=== PATIENT | female | born 1990 | race Two or more races ===

== ENCOUNTER 2016-11-08 20:25 | Inpatient (IN) | payer MEDICAID ==
[~2016-11-08] VITALS: Ht 149.9 cm; Wt 49.0 kg
[2016-11-08] MEDS ORDERED: D5W 500ml 550 ML IV ONE (20:29)
[2016-11-08] MEDS ORDERED: D5W 55 ML IV ONE (20:30)
--- NOTE | 2016-11-08 20:39 | Emergency Room Report ---
History of Present Illness General Chief Complaint: Generalized Weakness Source: Patient Present Illness HPI 26YOF BIBEMS for AMS Critically low blood glucose on scene Takes insulin, metformin, "something else." Was given D50 on scene glucose 40 in ED - patient lethargic Allergies: Coded Allergies: MORPHINE (Verified Allergy, Unknown, 11/08/16) PENICILLINS (Verified Allergy, Unknown, 11/08/16) Patient History Past Medical History: unable to obtain, DM Past Surgical History: unable to obtain Pertinent Family History: unable to obtain Social History: Denies: smoking, alcohol use, drug use Last Menstrual Period: unk Immunizations: UTD Reviewed Nursing Documentation: PMH: Agreed, PSxH: Agreed Nursing Documentation-PMH Past Medical History: No History, Except For Hx Diabetes: Yes Review of Systems All Other Systems: negative except mentioned in HPI Physical Exam Vital Signs Date Time Temp Pulse Resp B/P (MAP) Pulse Ox O2 Delivery O2 Flow Rate FiO2 11/08/16 20:17 140 42 118/68 98 Room Air Sp02 EP Interpretation: reviewed, normal General Appearance: normal inspection, well appearing, lethargic Head: normocephalic, atraumatic Eyes: bilateral eye PERRL, bilateral eye EOMI ENT: normal ENT inspection, hearing grossly normal, normal voice Neck: normal inspection, full range of motion, supple, no bony tend Respiratory: normal inspection, lungs clear, normal breath sounds, no respiratory distress, no retraction, no wheezing Cardiovascular #1: regular rate, rhythm, no edema Gastrointestinal: normal inspection, normal bowel sounds, non tender, soft, no guarding, no hernia Genitourinary: no CVA tenderness Musculoskeletal: normal inspection, back normal, normal range of motion, Christopher' s Sign negative Neurologic: normal inspection, alert, 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, 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, motor strength/tone normal, speech normal Psychiatric: normal inspection, judgement/insight normal, mood/affect normal Skin: normal inspection, normal color, no rash Medical Decision Making Diagnostic Impression: Primary Impression: Altered mental status Qualified Codes: R41.82 - Altered mental status, unspecified Additional Impressions: Hypoglycemia Sepsis Qualified Codes: A41.9 - Sepsis, unspecified organism Hypokalemia ER Course Hypoglycemia - Continued to drop despite EMS-given dextrose - Additional dextrose given here and D10 gtt started - CMP shows glucose 42 Sepsis - Fever, Leuks 30K+ - UA: pending at time of admission - CXR: No obvious PNA - Blood, Urine Cx sent - Empiric Abx given with ID tylenol - Unlikely meningitis given no meningismus, no focal neuro deficits Endorsed to Dr Avila for tele admit at 930pm EKG Diagnostic Results Rate: tachycardiac Rhythm: NSR ST Segments: no acute changes ASA given to the pt in ED: No Rhythm Strip Diag. Results EP Interpretation: yes Rate: 124 Rhythm: NSR, no PVC's, no ectopy Last Vital Signs Date Time Temp Pulse Resp B/P (MAP) Pulse Ox O2 Delivery O2 Flow Rate FiO2 11/08/16 20:17 140 42 118/68 98 Room Air Status: improved Disposition: ADMITTED INPATIENT Condition: Serious LAUREN SPANGLER M.D. Nov 08, 2016 20:39
[2016-11-08] MEDS ORDERED: Dextrose 10%/0.9% SOD CHL 1,000 ML IV SCH (20:45)
[2016-11-08 20:58] LABS: MEAN CORPUSCULAR HEMOGLOBIN 30.9 PG (27.0-31.0); MEAN CORPUSCULAR HGB CONC 33.9 G/DL (32.0-36.0); MEAN CORPUSCULAR VOLUME 91 FL (80-99); MEAN PLATELET VOLUME 5.6 FL (6.5-10.1); PLATELET COUNT 381 K/UL (150-450); RED BLOOD COUNT 3.04 M/UL (4.20-5.40); RED CELL DISTRIBUTION WIDTH 14.3 % (11.6-14.8)
[2016-11-08 21:01] VITALS: BP 115/69
[2016-11-08 21:02] LABS: WHITE BLOOD COUNT 33.7 K/UL (4.8-10.8)
[2016-11-08 21:11] LABS: ALANINE AMINOTRANSFERASE 16 U/L (3-33); ANION GAP 15 (5-15); ASPARTATE AMINO TRANSFERASE 22 U/L (5-40); CALCIUM 9.5 mg/dL (8.6-10.2); CARBON DIOXIDE 22 mEQ/L (20-30); CHLORIDE 93 mEQ/L (98-107); CREATININE 0.8 mg/dL (0.5-0.9); GLOMERULAR FILTRATION RATE > 60 mL/min (>60); HEMOLYSIS 7; POTASSIUM 3.2 mEQ/L (3.4-4.9); SODIUM 130 mEQ/L (135-145); TOTAL PROTEIN 7.6 g/dL (6.6-8.7)
[2016-11-08] MEDS ORDERED: Acetaminophen 650 MG SUPP RECTAL ONE (21:30)
[2016-11-08] MEDS ORDERED: Vancomycin 1 GM in NS 275 ML IVPB ONE (21:30)
[2016-11-08] MEDS ORDERED: Clindamycin 900mg 50 ML IVPB ONE (21:30)
[2016-11-08] MEDS ORDERED: Vancomycin 1gm inj IVPB ONE (21:52)
[2016-11-08] MEDS ORDERED: LORazepam Inj 2mg/ml 1ml IV PRN (22:15)
[2016-11-08] MEDS ORDERED: Miralax 17gm pkt ORAL PRN (22:15)
[2016-11-08] MEDS ORDERED: Mylanta II UD 30ml ORAL PRN (22:15)
[2016-11-08] MEDS ORDERED: Zolpidem 5mg tab ORAL PRN (22:15)
[2016-11-08 22:24] VITALS: BP 103/61
[2016-11-08 22:36] LABS: ANISOCYTOSIS 1+; BAND NEUTROPHILS % (MANUAL) 7 % (0-8); BASOPHILS % (MANUAL) 0 % (0-2); EOSINOPHILS % (MANUAL) 0 % (0-3); HYPOCHROMASIA 1+; LYMPHOCYTES % (MANUAL) 6 % (20-45); NEUTROPHILS % (MANUAL) 83 % (45-75); PLATELET ESTIMATE ADEQUATE; PLATELET MORPHOLOGY NORMAL; TOTAL CELLS COUNTED 100
[2016-11-08 22:50] VITALS: BP 101/59
[2016-11-09] VITALS (11 sets, daily range): BP systolic 80–122; BP diastolic 50–85
[2016-11-09] MEDS ORDERED: GLIPIZIDE ER5 MG PO (01:36)
[2016-11-09] MEDS ORDERED: ADVAIR 100-501 EACH INH (01:36)
[2016-11-09] MEDS ORDERED: SINGULAIR10 MG ORAL (01:36)
[2016-11-09] MEDS ORDERED: PROGRAF0.5 MG PO (01:36)
[2016-11-09] MEDS ORDERED: LANTUS SOL100 UNIT/1 SUBQ (01:36)
[2016-11-09] MEDS ORDERED: NOVOLOG100 UNITS1 (01:36)
[2016-11-09] MEDS ORDERED: SIMVASTATIN10 MG ORAL (01:36)
[2016-11-09] MEDS ORDERED: PREDNISONE2.5 MG ORAL (01:36)
[2016-11-09] MEDS ORDERED: LISINOPRIL10 MG ORAL (01:36)
[2016-11-09] MEDS ORDERED: PROAIR HFA8.5 GM INH (01:36)
[2016-11-09] MEDS ORDERED: NEXIUM40 MG ORAL (01:36)
[2016-11-09] MEDS ORDERED: BREO ELLIPTA 21 EACH IH (01:36)
[2016-11-09] MEDS ORDERED: CELLCEPT200 MG/1 M PO (01:36)
[2016-11-09] MEDS ORDERED: DITROPAN XL5 MG ORAL (01:36)
[2016-11-09] MEDS ORDERED: METFORMIN HCL500 M1 ORAL (01:36)
[2016-11-09] MEDS ORDERED: FLOVENT2 PUFF1 INH (01:36)
[2016-11-09] MEDS ORDERED: FLUTICASONE PRO16 G1 NASAL (01:36)
[2016-11-09] MEDS ORDERED: GLIMEPIRIDE1 MG ORAL (01:36)
[2016-11-09] MEDS: Aztreonam Inj 1 GM in NS 50 ML IVPB SCH ×3 (01:57→16:59)
[2016-11-09] MEDS: NovoLOG Insulin Flexpen SUBQ SCH ×4 (06:43→21:31)
[2016-11-09 06:44] LABS: MEAN CORPUSCULAR HEMOGLOBIN 30.1 PG (27.0-31.0); MEAN CORPUSCULAR HGB CONC 33.2 G/DL (32.0-36.0); MEAN CORPUSCULAR VOLUME 91 FL (80-99); MEAN PLATELET VOLUME 5.7 FL (6.5-10.1); PLATELET COUNT 412 K/UL (150-450); RED BLOOD COUNT 3.36 M/UL (4.20-5.40); RED CELL DISTRIBUTION WIDTH 14.7 % (11.6-14.8)
[2016-11-09 06:52] LABS: WHITE BLOOD COUNT 23.3 K/UL (4.8-10.8)
[2016-11-09 07:00] LABS: ALANINE AMINOTRANSFERASE 18 U/L (3-33); ANION GAP 12 (5-15); ASPARTATE AMINO TRANSFERASE 18 U/L (5-40); CALCIUM 9.1 mg/dL (8.6-10.2); CARBON DIOXIDE 24 mEQ/L (20-30); CHLORIDE 94 mEQ/L (98-107); CHOLESTEROL 85 mg/dL (< 200); CHOLESTEROL/HDL RATIO 2.1 (3.3-4.4); CREATININE 0.7 mg/dL (0.5-0.9); GLOMERULAR FILTRATION RATE > 60 mL/min (>60); HEMOLYSIS 1; LDL CHOLESTEROL (CALC.) 34 mg/dL (60-99); POTASSIUM 4.1 mEQ/L (3.4-4.9); SODIUM 130 mEQ/L (135-145)
[2016-11-09 08:17] LABS: BAND NEUTROPHILS % (MANUAL) 0 % (0-8); BASOPHILS % (MANUAL) 0 % (0-2); EOSINOPHILS % (MANUAL) 0 % (0-3); LYMPHOCYTES % (MANUAL) 9 % (20-45); NEUTROPHILS % (MANUAL) 86 % (45-75); PLATELET ESTIMATE INCREASED; PLATELET MORPHOLOGY NORMAL; TOTAL CELLS COUNTED 100
[2016-11-09 08:19] LABS: ANISOCYTOSIS 1+
[2016-11-09] MEDS: Heparin 5000 units/ml inj SUBQ SCH ×2 (08:36→21:33)
[2016-11-09] MEDS: Vancomycin 750mg/NS 250ml IVPB SCH ×2 (10:44→23:25)
[2016-11-09] MEDS ORDERED: Tubing IV Secondary IV ONE (11:12)
[2016-11-09] MEDS ORDERED: NS 275ml ONE (11:12)
--- NOTE | 2016-11-09 11:20 | Diagnostic Imaging Report ---
Indication: Dyspnea Comparison: None A single view chest radiograph was obtained. Findings: Interstitial edema suspected. Heart is enlarged. Bones are unremarkable. These correlate clinically. Impression: Suspected mild interstitial edema
--- NOTE | 2016-11-09 13:12 | History and Physical ---
History of Present Illness General Date patient seen: Nov 09, 2016 Reason for Hospitalization: Generalized Weakness Present Illness HPI 26 year old homeless female with hx of DM, brought in by paramedics with CC of ALOC and hypoglycemia,. She was found to be febrile with leukocytosis as well. She doesn't have any dysuria, some left flank pain, no cough, no flu symptoms. Allergies: Coded Allergies: MORPHINE (Verified Allergy, Unknown, 11/08/16) PENICILLINS (Verified Allergy, Unknown, 11/08/16) Medication History Scheduled Albuterol Sulfate* (Proair Hfa*), 1 PUFF INH Q6H, (Reported) Esomeprazole Magnesium (Nexium), 40 MG ORAL DAILY, (Reported) Fluticasone Propionate (Flovent Hfa), 2 PUFFS INH BID, (Reported) Fluticasone Propionate* (Fluticasone Propionate*), 1 SPRAY NASAL DAILY, ( Reported) Fluticasone/Salmeterol (Advair 100-50 Diskus), 1 PUFF INH EVERY 12 HOURS, ( Reported) Glimepiride* (Glimepiride*), 40 MG ORAL BEFORE BREAKFAST, (Reported) Insulin Glargine (Lantus), 0 SUBQ BEDTIME, (Reported) Lisinopril* (Lisinopril*), 10 MG ORAL DAILY, (Reported) Metformin Hcl* (Metformin Hcl*), 500 MG ORAL TWICE A DAY, (Reported) Montelukast Sodium* (Singulair*), 10 MG ORAL DAILY, (Reported) Oxybutynin Chloride (Ditropan Xl), 5 MG ORAL DAILY, (Reported) Prednisone* (Prednisone*), 5 MG ORAL DAILY, (Reported) Simvastatin (Zocor), 10 MG ORAL BEDTIME, (Reported) Miscellaneous Medications Fluticasone/Vilanterol (Breo Ellipta 200-25 Mcg INH), 1 EACH IH, (Reported) Glipizide (Glipizide Er), 5 MG PO, (Reported) Insulin Aspart (Novolog Flexpen), (Reported) Mycophenolate Mofetil (Cellcept), 500 MG PO, (Reported) Tacrolimus (Prograf), 1 MG PO, (Reported) Patient History Healthcare decision maker Resuscitation status Full Code Advanced Directive on File No Past Medical/Surgical History Past Medical/Surgical History: (1) Diabetes mellitus Review of Systems All Other Systems: negative except mentioned in HPI Physical Exam General Appearance: WD/WN Lines, tubes and drains: peripheral HEENT: normocephalic, atraumatic Neck: non-tender, normal alignment Respiratory/Chest: chest wall non-tender, lungs clear Breasts: no masses Cardiovascular/Chest: normal peripheral pulses Abdomen: normal bowel sounds, non tender Genitourinary/Rectal: normal genital exam Extremities: normal range of motion, non-tender Skin Exam: warm/dry Last 24 Hour Vital Signs Date Time Temp Pulse Resp B/P (MAP) Pulse Ox O2 Delivery O2 Flow Rate FiO2 11/09/16 11:33 97.9 88 20 91/53 96 Room Air 11/09/16 09:26 98.4 11/09/16 08:11 102.2 132 20 102/61 97 11/09/16 08:00 126 11/09/16 04:00 92 11/09/16 04:00 97.0 82 20 121/62 98 Room Air 11/09/16 04:00 98.2 100 21 104/55 99 Room Air 11/09/16 03:00 97.0 78 20 101/58 98 Room Air 11/09/16 02:30 96.0 75 20 88/53 99 Room Air 11/09/16 02:00 96.0 82 20 90/50 99 Room Air 11/09/16 01:45 96.0 82 20 88/56 99 Room Air 11/09/16 01:15 96.0 72 20 84/50 99 Room Air 11/09/16 01:00 96.0 78 20 80/54 98 Room Air 11/09/16 00:30 97.9 83 27 98/68 100 Room Air 11/08/16 22:50 83 27 101/59 100 Room Air 11/08/16 22:50 97.9 11/08/16 22:24 97.9 108 32 103/61 100 Room Air 11/08/16 21:01 102.9 123 41 115/69 99 Room Air 11/08/16 20:17 140 42 118/68 98 Room Air Intake and Output 11/09/16 11/10/16 19:00 07:00 Intake Total 240 ml Balance 240 ml Intake Oral 240 ml # Voids 3 Laboratory Tests Test 11/08/16 20:35 11/09/16 06:20 White Blood Count 33.7 K/UL (4.8-10.8) *H 23.3 K/UL (4.8-10.8) *H Red Blood Count 3.04 M/UL (4.20-5.40) L 3.36 M/UL (4.20-5.40) L Hemoglobin 9.4 G/DL (12.0-16.0) L 10.1 G/DL (12.0-16.0) L Hematocrit 27.8 % (37.0-47.0) L 30.5 % (37.0-47.0) L Mean Corpuscular Volume 91 FL (80-99) 91 FL (80-99) Mean Corpuscular Hemoglobin 30.9 PG (27.0-31.0) 30.1 PG (27.0-31.0) Mean Corpuscular Hemoglobin Concent 33.9 G/DL (32.0-36.0) 33.2 G/DL (32.0-36.0) Red Cell Distribution Width 14.3 % (11.6-14.8) 14.7 % (11.6-14.8) Platelet Count 381 K/UL (150-450) 412 K/UL (150-450) Mean Platelet Volume 5.6 FL (6.5-10.1) L 5.7 FL (6.5-10.1) L Neutrophils (%) (Auto) % (45.0-75.0) % (45.0-75.0) Lymphocytes (%) (Auto) % (20.0-45.0) % (20.0-45.0) Monocytes (%) (Auto) % (1.0-10.0) % (1.0-10.0) Eosinophils (%) (Auto) % (0.0-3.0) % (0.0-3.0) Basophils (%) (Auto) % (0.0-2.0) % (0.0-2.0) Differential Total Cells Counted 100 100 Neutrophils % (Manual) 83 % (45-75) H 86 % (45-75) H Lymphocytes % (Manual) 6 % (20-45) L 9 % (20-45) L Monocytes % (Manual) 4 % (1-10) 5 % (1-10) Eosinophils % (Manual) 0 % (0-3) 0 % (0-3) Basophils % (Manual) 0 % (0-2) 0 % (0-2) Band Neutrophils 7 % (0-8) 0 % (0-8) Other Cell Type Platelet Estimate Adequate Increased H Platelet Morphology Normal Normal Hypochromasia 1+ Anisocytosis 1+ 1+ Sodium Level 130 mEQ/L (135-145) L 130 mEQ/L (135-145) L Potassium Level 3.2 mEQ/L (3.4-4.9) L 4.1 mEQ/L (3.4-4.9) Chloride Level 93 mEQ/L (98-107) L 94 mEQ/L (98-107) L Carbon Dioxide Level 22 mEQ/L (20-30) 24 mEQ/L (20-30) Anion Gap 15 (5-15) 12 (5-15) Blood Urea Nitrogen 12 mg/dL (7-23) 9 mg/dL (7-23) Creatinine 0.8 mg/dL (0.5-0.9) 0.7 mg/dL (0.5-0.9) Estimat Glomerular Filtration Rate > 60 mL/min (>60) > 60 mL/min (>60) Glucose Level 42 mg/dL (74-106) L 296 mg/dL (74-106) #H Calcium Level 9.5 mg/dL (8.6-10.2) 9.1 mg/dL (8.6-10.2) Total Bilirubin 0.3 mg/dL (0.0-1.2) 0.4 mg/dL (0.0-1.2) Aspartate Amino Transf (AST/SGOT) 22 U/L (5-40) 18 U/L (5-40) Alanine Aminotransferase (ALT/SGPT) 16 U/L (3-33) 18 U/L (3-33) Alkaline Phosphatase 93 U/L (35-104) 98 U/L (35-104) Total Protein 7.6 g/dL (6.6-8.7) 7.0 g/dL (6.6-8.7) Albumin 3.9 g/dL (3.5-5.2) 3.6 g/dL (3.5-5.2) Globulin 3.7 g/dL 3.4 g/dL Albumin/Globulin Ratio 1.0 (1.0-2.7) 1.0 (1.0-2.7) Triglycerides Level 49 mg/dL (< 150) Cholesterol Level 85 mg/dL (< 200) LDL Cholesterol 34 mg/dL (60-99) L HDL Cholesterol 41 mg/dL (> 60) Cholesterol/HDL Ratio 2.1 (3.3-4.4) L Height (Feet): 4 Height (Inches): 11.00 Weight (Pounds): 108 Medications Current Medications Medications (Trade) Dose Ordered Sig/Mike Route PRN Reason Start Time Stop Time Status Last Admin Dose Admin Acetaminophen (Tylenol) 650 mg Q4H PRN ORAL Mild Pain/Temp > 100.5 11/09/16 06:45 12/09/16 06:44 11/09/16 08:27 Al Hydroxide/Mg Hydroxide (Mylanta II) 30 ml Q6H PRN ORAL dyspepsia 11/08/16 22:15 12/08/16 22:14 Aztreonam 1 gm/ Sodium Chloride 50 ml @ 100 mls/hr Q8H IVPB 11/09/16 00:00 11/16/16 00:00 11/09/16 08:26 Dextrose (Dextrose 50%) STAT PRN IV Hypoglycemia 11/08/16 22:15 12/08/16 22:14 Dextrose/Sodium Chloride 1,000 ml @ 50 mls/hr Q20H IV 11/08/16 20:45 12/08/16 20:44 11/08/16 21:07 Heparin Sodium (Porcine) (Heparin 5000 units/ml) 5,000 units EVERY 12 HOURS SUBQ 11/09/16 09:00 12/09/16 08:59 11/09/16 08:36 Insulin Aspart (NovoLOG) BEFORE MEALS AND HS SUBQ 11/09/16 06:30 12/09/16 06:29 11/09/16 12:20 Lorazepam (Ativan 2mg/ml 1ml) 0.5 mg Q4H PRN IV For Anxiety 11/08/16 22:15 11/15/16 22:14 Ondansetron HCl (Zofran) 4 mg Q6H PRN IVP Nausea & Vomiting 11/08/16 22:15 12/08/16 22:14 Polyethylene Glycol (Miralax) 17 gm HSPRN PRN ORAL Constipation 11/08/16 22:15 12/08/16 22:14 Vancomycin HCl (Vanco rx to dose) 1 ea DAILY PRN MISC Per rx protocol 11/08/16 22:15 12/08/16 22:14 Vancomycin/Sodium Chloride 250 ml @ 166.667 mls/hr Q12H IVPB 11/09/16 11:00 11/14/16 10:59 11/09/16 10:44 Zolpidem Tartrate (Ambien) 5 mg HSPRN PRN ORAL Insomnia 11/08/16 22:15 11/15/16 22:14 Assessment/Plan Problem List: (1) Sepsis ICD Codes: A41.9 - Sepsis, unspecified organism SNOMED: 52646464 Qualifiers: Qualified Codes: A41.9 - Sepsis, unspecified organism (2) Hypoglycemia ICD Codes: E16.2 - Hypoglycemia, unspecified SNOMED: 453479415 (3) Altered mental status ICD Codes: R41.82 - Altered mental status, unspecified SNOMED: 064236880 Qualifiers: Qualified Codes: R41.82 - Altered mental status, unspecified (4) Diabetes mellitus ICD Codes: E11.9 - Type 2 diabetes mellitus without complications SNOMED: 77042034 Assessment/Plan iv fluids iv cultures panculture echo dvt prophylaxis MICHAEL US Nov 09, 2016 13:12
--- NOTE | 2016-11-09 13:30 | Cardiology Report ---
APPROVED REPORT EXAM: Two-dimensional and M-mode echocardiogram with Doppler and color Doppler. INDICATION LV function M-Mode DIMENSIONS IVSd1.1 (0.7-1.1cm)Left Atrium (MM)2.8 (1.6-4.0cm) LVDd3.2 (3.5-5.6cm)Aortic Root2.9 (2.0-3.7cm) PWd1.2 (0.7-1.1cm)Aortic Cusp Exc.1.7 (1.5-2.0cm) LVDs1.4 (2.5-4.0cm) PWs1.7 cm Normal left ventricular chamber size, systolic function and wall motion. Left ventricular ejection fraction estimated to be 60 %. Borderline mild left ventricular hypertrophy by 2-D. Anterior Echo-free space, may be due to pericardial fat or effusion. All other cardiac chamber sizes are within normal limits. Normal appearing aortic, mitral, pulmonic and tricuspid valves. Mild mitral annulus and aortic root calcification. IVC at normal size with physiologic collapse. A color flow and spectral Doppler study was performed and revealed: Mild aortic regurgitation. Mild mitral regurgitation. Mitral inflow indicates normal left ventricular diastolic function. Trace tricuspid regurgitation. Tricuspid systolic velocities suggests peak right ventricular systolic pressure of 32 mmHg. Pulmonic regurgitation present.
--- NOTE | 2016-11-09 15:34 | Cardiology Report ---
APPROVED REPORT EKG Measurement Heart [id number] Sinus tachycardia Otherwise normal ECG
[2016-11-09] MEDS ORDERED: SODIUM ACETATE IV ONE (15:45)
[2016-11-09] MEDS ORDERED: NS IV ONE (15:45)
[2016-11-09] MEDS ORDERED: NS IV SCH (15:45)
[2016-11-09] MEDS ORDERED: SODIUM ACETATE IV SCH (15:45)
[2016-11-09] MEDS ORDERED: Lidocaine 1% Plain 30 ml INJ ONE (16:00)
[2016-11-09] MEDS ORDERED: Heparin 2000 units/Ns 1000ml INJ ONE (16:00)
--- NOTE | 2016-11-09 17:04 | Diagnostic Imaging Report ---
Indication:Lower abdominal and pelvic pain Technique: Grayscale and duplex Doppler imaging of the pelvis performed utilizing a transabdominal scan and endovaginal scan. Comparison: None Findings: other instrumentation. The uterus is mildly inhomogeneous but otherwise unremarkable. There are multiple cysts within both ovaries, solid portions of which appear to show color Doppler evidence of blood flow. The right ovary is 3.8 x 3.3 x 1.8 CM. Left ovary is 3.9 x 3.8 x 2.5 CM. Uterus measures 8 x 4.6 x 4 CM. Endometrium is 11 mm in thickness at its maximum. No significant free fluid demonstrated. Impression: Negative evaluation.
--- NOTE | 2016-11-09 19:26 | Consultation ---
Consult Note Consult Note dictated DEANA LUTHER M.D. Nov 09, 2016 19:26
[2016-11-09] MEDS: Dyna-Hex 2% Top Sol 8oz TOPIC SCH (21:00)
[2016-11-09 23:38] LABS: APPEARANCE,URINE CLEAR; KETONES,URINE NEGATIVE (NEGATIVE); LEUKOCYTE ESTERASE ,URINE 2+ (NEGATIVE); NITRITE,URINE NEGATIVE (NEGATIVE); PH,URINE 7 (4.5-8.0); PROTEIN,URINE 1+ (NEGATIVE); UROBILINOGEN,URINE NORMAL MG/DL (0.0-1.0)
[2016-11-09 23:53] LABS: RBC,URINE 0 /HPF (0 - 2)
[2016-11-09 23:54] LABS: BACTERIA,URINE FEW /HPF; SQUAMOUS EPITHELIAL CELL,UR MODERATE /LPF (NONE/OCC)
[2016-11-10] VITALS: BP 120/71
[2016-11-10] MEDS: Aztreonam Inj 1 GM in NS 50 ML IVPB SCH ×3 (01:15→16:04)
[2016-11-10 04:00] VITALS: BP 109/73
[2016-11-10] MEDS: NovoLOG Insulin Flexpen SUBQ SCH ×4 (06:29→20:44)
[2016-11-10 06:57] LABS: BASOPHILS % (AUTO) 0.5 % (0.0-2.0); EOSINOPHILS % (AUTO) 0.5 % (0.0-3.0); LYMPHOCYTES % (AUTO) 21.5 % (20.0-45.0); MEAN CORPUSCULAR HEMOGLOBIN 29.9 PG (27.0-31.0); MEAN CORPUSCULAR HGB CONC 33.1 G/DL (32.0-36.0); MEAN CORPUSCULAR VOLUME 90 FL (80-99); MEAN PLATELET VOLUME 5.6 FL (6.5-10.1); MONOCYTES % (AUTO) 9.3 % (1.0-10.0); NEUTROPHILS % (AUTO) 68.2 % (45.0-75.0); PLATELET COUNT 413 K/UL (150-450); RED BLOOD COUNT 3.16 M/UL (4.20-5.40); RED CELL DISTRIBUTION WIDTH 14.7 % (11.6-14.8); WHITE BLOOD COUNT 16.3 K/UL (4.8-10.8)
[2016-11-10 07:40] LABS: ALANINE AMINOTRANSFERASE 10 U/L (3-33); ALBUMIN/GLOBULIN RATIO 0.9 (1.0-2.7); ANION GAP 12 (5-15); ASPARTATE AMINO TRANSFERASE 11 U/L (5-40); CALCIUM 9.6 mg/dL (8.6-10.2); CARBON DIOXIDE 25 mEQ/L (20-30); CHLORIDE 98 mEQ/L (98-107); CREATININE 0.6 mg/dL (0.5-0.9); CRP QUANT 23.5 mg/dL (< 0.5); GLOMERULAR FILTRATION RATE > 60 mL/min (>60); HEMOLYSIS 0; MAGNESIUM 1.4 mg/dL (1.7-2.5); PHOSPHORUS 3.3 mg/dL (2.5-4.8); POTASSIUM 3.7 mEQ/L (3.4-4.9); SODIUM 135 mEQ/L (135-145); TOTAL PROTEIN 6.7 g/dL (6.6-8.7)
[2016-11-10 08:00] VITALS: BP 101/66
[2016-11-10 08:39] LABS: ERYTHROCYTE SEDIMENTATION RATE 119 MM/HR (0-20)
[2016-11-10] MEDS: Dyna-Hex 2% Top Sol 8oz TOPIC SCH (09:00)
--- NOTE | 2016-11-10 09:46 | Consultation ---
DATE OF CONSULTATION: INFECTIOUS DISEASES CONSULTATION CONSULTING PHYSICIAN: Nikhil Retana M.D. REQUESTING PHYSICIAN: Naima Avila M.D. REASON FOR CONSULTATION: Evaluation of the patient for UTI, fever, sepsis, leukocytosis, and antibiotic management. HISTORY OF PRESENT ILLNESS: The patient is a 26-year-old female with multiple medical problems as listed below, who was admitted to this medical center altered level of consciousness, however, the patient denied having significant change of mental status. She complains of having been feeling weak, having pain over the left-sided kidney transplant and flank tenderness that she is contributing due to urinary tract infection. The patient was found to have leukocytosis. Also, the patient was found to have hyperglycemia and the patient has been started on IV antibiotics. Infectious Diseases consultation has been requested for further evaluation of the patient's antibiotic management. PAST MEDICAL HISTORY: 1. Diabetes. 2. Asthma. 3. History of renal transplant x2 (2008 and 2013). 4. Anemia. ALLERGIES: Penicillin and morphine. SOCIAL HISTORY: The patient is homeless. FAMILY HISTORY: Noncontributory. REVIEW OF SYSTEMS: A 10-point review was done and except what is mentioned above has been negative. PHYSICAL EXAMINATION: VITAL SIGNS: Temperature 102 degrees, blood pressure 122/85, pulse 86, and respiratory rate 18. HEENT: Mild pale conjunctivae. NECK: No lymphadenopathy. CHEST: Coarse breathing sounds. HEART: S1 and S2. ABDOMEN: Soft. The patient has mild tenderness over the left lower quadrant at the site of kidney transplant. Mild left-sided flank tenderness. NEUROLOGIC: Awake and alert. SKIN: No rash. LABORATORY AND DIAGNOSTIC DATA: White blood cells 23, hemoglobin 10, and platelets 416,000. BUN 9 and creatinine 0.7. ALT, AST, and alkaline phosphatase are unremarkable. Abdominal ultrasound negative. Chest x-ray, unremarkable. ASSESSMENT: 1. Fever. 2. Leukocytosis. 3. Possible pyelonephritis (left renal transplant). 4. Rule out bacteremia. PLAN: 1. We will continue the patient on Azactam. 2. Monitor CBC. 3. Monitor BMP. 4. Send urine culture and UA, has not been sent. This is post antibiotic treatment. 5. Renal ultrasound. 6. Based on the patient's clinical course and labs, we will do further recommendations. . Thank you, Dr. Avila, for allowing me to participate in the care of this patient. I will follow the patient with you during this hospitalization. Nikhil Retana M.D. DR: Tabitha JOB#: [id number] CC:
[2016-11-10] MEDS: Heparin 5000 units/ml inj SUBQ SCH ×2 (10:43→20:43)
[2016-11-10 12:00] VITALS: BP 102/63
--- NOTE | 2016-11-10 12:17 | Pulmonology Progress Note ---
Assessment/Plan Problems: (1) Sepsis (2) Hypoglycemia (3) Altered mental status (4) Diabetes mellitus (5) Renal transplant, status post (6) Tachycardia Assessment/Plan wbc decreasing echo checked check cultures keep in teli as ling as tachycardic Subjective ROS Limited/Unobtainable: No Constitutional: Reports: no symptoms HEENT: Repors: no symptoms Respiratory: Reports: no symptoms Cardiovascular: Reports: no symptoms Allergies: Coded Allergies: MORPHINE (Verified Allergy, Unknown, 11/08/16) PENICILLINS (Verified Allergy, Unknown, 11/08/16) Objective Last 24 Hour Vital Signs Date Time Temp Pulse Resp B/P (MAP) Pulse Ox O2 Delivery O2 Flow Rate FiO2 11/10/16 08:00 98.1 89 19 101/66 97 Room Air 11/10/16 04:00 92 11/10/16 04:00 98.2 94 20 109/73 97 Room Air 11/10/16 03:00 98.2 11/10/16 00:00 99.7 109 20 120/71 96 Room Air 11/10/16 00:00 115 11/09/16 20:00 94 11/09/16 20:00 98.8 94 20 99/68 97 Room Air 11/09/16 16:00 140 11/09/16 15:36 101.5 111 22 122/85 98 Room Air General Appearance: WD/WN, no acute distress HEENT: atraumatic Respiratory/Chest: chest wall non-tender, lungs clear Breasts: no masses Cardiovascular: normal peripheral pulses, normal rate Abdomen: soft, non tender, no organomegaly Genitourinary: normal external genitalia Extremities: no clubbing Microbiology Date/Time Source Procedure Growth Status 11/08/16 22:00 Blood Blood Culture - Preliminary NO GROWTH AFTER 24 HOURS Resulted 11/08/16 21:45 Blood Blood Culture - Preliminary NO GROWTH AFTER 24 HOURS Resulted Laboratory Tests 11/09/16 22:45: Urine Color Pale yellow, Urine Appearance Clear, Urine pH 7, Urine Specific [place] 1.005, Urine Protein 1+H, Urine Glucose (UA) 4+H, Urine Ketones Negative , Urine Occult Blood Negative, Urine Nitrite Negative, Urine Bilirubin Negative , Urine Urobilinogen Normal, Urine Leukocyte Esterase 2+H, Urine RBC 0, Urine WBC 5-10H, Urine Squamous Epithelial Cells ModerateH, Urine Bacteria Few 11/10/16 06:00: White Blood Count 16.3H, Red Blood Count 3.16L, Hemoglobin 9.4L, Hematocrit 28.5L, Mean Corpuscular Volume 90, Mean Corpuscular Hemoglobin 29.9, Mean Corpuscular Hemoglobin Concent 33.1, Red Cell Distribution Width 14.7, Platelet Count 413, Mean Platelet Volume 5.6L, Neutrophils (%) (Auto) 68.2, Lymphocytes ( %) (Auto) 21.5, Monocytes (%) (Auto) 9.3, Eosinophils (%) (Auto) 0.5, Basophils (%) (Auto) 0.5, Erythrocyte Sedimentation Rate 119H, Sodium Level 135, Potassium Level 3.7, Chloride Level 98, Carbon Dioxide Level 25, Anion Gap 12, Blood Urea Nitrogen 8, Creatinine 0.6, Estimat Glomerular Filtration Rate > 60, Glucose Level 172#H, Calcium Level 9.6, Phosphorus Level 3.3, Magnesium Level 1.4L, Total Bilirubin 0.3, Aspartate Amino Transf (AST/SGOT) 11, Alanine Aminotransferase (ALT/SGPT) 10, Alkaline Phosphatase 88, C-Reactive Protein, Quantitative 23.5H, Total Protein 6.7, Albumin 3.3L, Globulin 3.4, Albumin/ Globulin Ratio 0.9L Current Medications Medications (Trade) Dose Ordered Sig/Mike Route PRN Reason Start Time Stop Time Status Last Admin Dose Admin Acetaminophen (Tylenol) 650 mg Q4H PRN ORAL Mild Pain/Temp > 100.5 11/09/16 06:45 12/09/16 06:44 11/10/16 02:01 Al Hydroxide/Mg Hydroxide (Mylanta II) 30 ml Q6H PRN ORAL dyspepsia 11/08/16 22:15 12/08/16 22:14 Aztreonam 1 gm/ Sodium Chloride 50 ml @ 100 mls/hr Q8H IVPB 11/09/16 00:00 11/16/16 00:00 11/10/16 10:21 Chlorhexidine Gluconate (Kyleigh-Hex 2%) 1 applic DAILY TOPIC 11/09/16 21:00 12/09/16 20:59 Dextrose (Dextrose 50%) STAT PRN IV Hypoglycemia 11/08/16 22:15 12/08/16 22:14 Heparin Sodium (Porcine) (Heparin 5000 units/ml) 5,000 units EVERY 12 HOURS SUBQ 11/09/16 09:00 12/09/16 08:59 11/10/16 10:43 Insulin Aspart (NovoLOG) BEFORE MEALS AND HS SUBQ 11/09/16 06:30 12/09/16 06:29 11/09/16 21:31 Lorazepam (Ativan 2mg/ml 1ml) 0.5 mg Q4H PRN IV For Anxiety 11/08/16 22:15 11/15/16 22:14 Ondansetron HCl (Zofran) 4 mg Q6H PRN IVP Nausea & Vomiting 11/08/16 22:15 12/08/16 22:14 Polyethylene Glycol (Miralax) 17 gm HSPRN PRN ORAL Constipation 11/08/16 22:15 12/08/16 22:14 Zolpidem Tartrate (Ambien) 5 mg HSPRN PRN ORAL Insomnia 11/08/16 22:15 11/15/16 22:14 MICHAEL US Nov 10, 2016 12:17
--- NOTE | 2016-11-10 12:17 | Diagnostic Imaging Report ---
Indication:Abdominal pain Technique: Grayscale and duplex Doppler imaging of the abdomen performed. Comparison: None Findings: The liver, demonstrated part of the pancreas, gallbladder, aorta and IVC, spleen appear unremarkable. CBD is 4 mm. There is no biliary ductal dilatation identified. The sun'aq kidneys are not seen well. Doppler evaluation of the main portal vein shows patency. There is no ascites. Patient has history of end-stage renal disease and is status post 2 transplant kidneys. There is an old transplanted kidney in the right iliac fossa, which appear small and echogenic. There is a left transplanted kidney as well as iliac fossa which appears normal in contour size and echogenicity with no hydronephrosis. Doppler sampling of the left renal transplant kidney shows resistive indices that are within normal limits (approximately 0.6- 0.7) and waveforms showing good diastolic flow throughout the cardiac cycle. Urinary bladder is unremarkable. Impression: No acute findings demonstrated. Atrophy of the sun'aq kidneys. Transplanted kidney in the left iliac fossa. Normal Doppler waveforms and resistive indices. Old right transplanted kidney.
[2016-11-10] MEDS ORDERED: Mycophenolate 250mg cap ORAL SCH (12:30)
[2016-11-10 16:00] VITALS: BP 106/73
[2016-11-10] MEDS ORDERED: Tubing IV Secondary IV ONE (16:49)
[2016-11-10] MEDS: Mycophenolate 250mg cap ORAL SCH (18:07)
--- NOTE | 2016-11-10 18:07 | Infectious Diseases Prog Note ---
Subjective Allergies: Coded Allergies: MORPHINE (Verified Allergy, Unknown, 11/08/16) PENICILLINS (Verified Allergy, Unknown, 11/08/16) Objective Vital Signs Last 24 Hour Vital Signs Date Time Temp Pulse Resp B/P (MAP) Pulse Ox O2 Delivery O2 Flow Rate FiO2 11/10/16 16:00 100.0 102 18 106/73 99 Room Air 11/10/16 16:00 123 11/10/16 15:10 100.0 11/10/16 12:00 101.8 121 20 102/63 98 Room Air 11/10/16 12:00 123 11/10/16 08:00 98.1 89 19 101/66 97 Room Air 11/10/16 08:00 78 11/10/16 04:00 92 11/10/16 04:00 98.2 94 20 109/73 97 Room Air 11/10/16 00:00 99.7 109 20 120/71 96 Room Air 11/10/16 00:00 115 11/09/16 20:00 94 11/09/16 20:00 98.8 94 20 99/68 97 Room Air Height (Feet): 4 Height (Inches): 11.00 Weight (Pounds): 108 Microbiology Date/Time Source Procedure Growth Status 11/08/16 22:00 Blood Blood Culture - Preliminary NO GROWTH AFTER 24 HOURS Resulted 11/08/16 21:45 Blood Blood Culture - Preliminary NO GROWTH AFTER 24 HOURS Resulted Laboratory Tests Test 11/09/16 22:45 11/10/16 06:00 Urine Color Pale yellow Urine Appearance Clear Urine pH 7 (4.5-8.0) Urine Specific [place] 1.005 (1.005-1.035) Urine Protein 1+ (NEGATIVE) H Urine Glucose (UA) 4+ (NEGATIVE) H Urine Ketones Negative (NEGATIVE) Urine Occult Blood Negative (NEGATIVE) Urine Nitrite Negative (NEGATIVE) Urine Bilirubin Negative (NEGATIVE) Urine Urobilinogen Normal MG/DL (0.0-1.0) Urine Leukocyte Esterase 2+ (NEGATIVE) H Urine RBC 0 /HPF (0 - 2) Urine WBC 5-10 /HPF (0 - 2) H Urine Squamous Epithelial Cells Moderate /LPF (NONE/OCC) H Urine Bacteria Few /HPF (NONE) White Blood Count 16.3 K/UL (4.8-10.8) H Red Blood Count 3.16 M/UL (4.20-5.40) L Hemoglobin 9.4 G/DL (12.0-16.0) L Hematocrit 28.5 % (37.0-47.0) L Mean Corpuscular Volume 90 FL (80-99) Mean Corpuscular Hemoglobin 29.9 PG (27.0-31.0) Mean Corpuscular Hemoglobin Concent 33.1 G/DL (32.0-36.0) Red Cell Distribution Width 14.7 % (11.6-14.8) Platelet Count 413 K/UL (150-450) Mean Platelet Volume 5.6 FL (6.5-10.1) L Neutrophils (%) (Auto) 68.2 % (45.0-75.0) Lymphocytes (%) (Auto) 21.5 % (20.0-45.0) Monocytes (%) (Auto) 9.3 % (1.0-10.0) Eosinophils (%) (Auto) 0.5 % (0.0-3.0) Basophils (%) (Auto) 0.5 % (0.0-2.0) Erythrocyte Sedimentation Rate 119 MM/HR (0-20) H Sodium Level 135 mEQ/L (135-145) Potassium Level 3.7 mEQ/L (3.4-4.9) Chloride Level 98 mEQ/L (98-107) Carbon Dioxide Level 25 mEQ/L (20-30) Anion Gap 12 (5-15) Blood Urea Nitrogen 8 mg/dL (7-23) Creatinine 0.6 mg/dL (0.5-0.9) Estimat Glomerular Filtration Rate > 60 mL/min (>60) Glucose Level 172 mg/dL (74-106) #H Calcium Level 9.6 mg/dL (8.6-10.2) Phosphorus Level 3.3 mg/dL (2.5-4.8) Magnesium Level 1.4 mg/dL (1.7-2.5) L Total Bilirubin 0.3 mg/dL (0.0-1.2) Aspartate Amino Transf (AST/SGOT) 11 U/L (5-40) Alanine Aminotransferase (ALT/SGPT) 10 U/L (3-33) Alkaline Phosphatase 88 U/L (35-104) C-Reactive Protein, Quantitative 23.5 mg/dL (< 0.5) H Total Protein 6.7 g/dL (6.6-8.7) Albumin 3.3 g/dL (3.5-5.2) L Globulin 3.4 g/dL Albumin/Globulin Ratio 0.9 (1.0-2.7) L Current Medications Medications (Trade) Dose Ordered Sig/Mike Route PRN Reason Start Time Stop Time Status Last Admin Dose Admin Acetaminophen (Tylenol) 650 mg Q4H PRN ORAL Mild Pain/Temp > 100.5 11/09/16 06:45 12/09/16 06:44 11/10/16 14:11 Al Hydroxide/Mg Hydroxide (Mylanta II) 30 ml Q6H PRN ORAL dyspepsia 11/08/16 22:15 12/08/16 22:14 Aztreonam 1 gm/ Sodium Chloride 50 ml @ 100 mls/hr Q8H IVPB 11/09/16 00:00 11/16/16 00:00 11/10/16 16:04 Chlorhexidine Gluconate (Kyleigh-Hex 2%) 1 applic DAILY TOPIC 11/09/16 21:00 12/09/16 20:59 Dextrose (Dextrose 50%) STAT PRN IV Hypoglycemia 11/08/16 22:15 12/08/16 22:14 Heparin Sodium (Porcine) (Heparin 5000 units/ml) 5,000 units EVERY 12 HOURS SUBQ 11/09/16 09:00 12/09/16 08:59 11/10/16 10:43 Insulin Aspart (NovoLOG) BEFORE MEALS AND HS SUBQ 11/09/16 06:30 12/09/16 06:29 11/10/16 17:07 Lorazepam (Ativan 2mg/ml 1ml) 0.5 mg Q4H PRN IV For Anxiety 11/08/16 22:15 11/15/16 22:14 Mycophenolate Mofetil (Cellcept) 500 mg TWICE A DAY ORAL 11/10/16 18:00 12/10/16 17:59 Ondansetron HCl (Zofran) 4 mg Q6H PRN IVP Nausea & Vomiting 11/08/16 22:15 12/08/16 22:14 Polyethylene Glycol (Miralax) 17 gm HSPRN PRN ORAL Constipation 11/08/16 22:15 12/08/16 22:14 Tacrolimus (Prograf) 1 mg EVERY 12 HOURS ORAL 11/10/16 21:00 12/10/16 20:59 Zolpidem Tartrate (Ambien) 5 mg HSPRN PRN ORAL Insomnia 11/08/16 22:15 11/15/16 22:14 DEANA LUTHER M.D. Nov 10, 2016 18:06
[2016-11-10 20:00] VITALS: BP 116/76
--- NOTE | 2016-11-10 21:08 | Infectious Diseases Prog Note ---
Assessment/Plan Assessment/Plan A: Fever improving Leukocytosis improving Possible pyelonephritis (left renal transplant), delayed UCx : P +ve Urgency and tenders over the left renal transplant Renal ultrasound.: Transplanted kidney in the left iliac fossa Rule out bacteremia. Diabetes Asthma History of renal transplant x2 (2008 and 2013) Anemia PLAN: continue the patient on Azactam d# 2 / 10 Monitor CBC Monitor BNP Monitor Cx ( Bl, Ur ) Subjective Allergies: Coded Allergies: MORPHINE (Verified Allergy, Unknown, 11/08/16) PENICILLINS (Verified Allergy, Unknown, 11/08/16) Subjective febrile , GUAAJRDO + Objective Vital Signs Last 24 Hour Vital Signs Date Time Temp Pulse Resp B/P (MAP) Pulse Ox O2 Delivery O2 Flow Rate FiO2 11/10/16 20:00 98.4 102 22 116/76 99 Room Air 11/10/16 16:00 100.0 102 18 106/73 99 Room Air 11/10/16 16:00 123 11/10/16 15:10 100.0 11/10/16 12:00 101.8 121 20 102/63 98 Room Air 11/10/16 12:00 123 11/10/16 08:00 98.1 89 19 101/66 97 Room Air 11/10/16 08:00 78 11/10/16 04:00 92 11/10/16 04:00 98.2 94 20 109/73 97 Room Air 11/10/16 00:00 99.7 109 20 120/71 96 Room Air 11/10/16 00:00 115 Height (Feet): 4 Height (Inches): 11.00 Weight (Pounds): 108 HEENT: anicteric Respiratory/Chest: no respiratory distress Cardiovascular: regularly irregular Abdomen: no organomegaly Microbiology Date/Time Source Procedure Growth Status 11/08/16 22:00 Blood Blood Culture - Preliminary NO GROWTH AFTER 24 HOURS Resulted 11/08/16 21:45 Blood Blood Culture - Preliminary NO GROWTH AFTER 24 HOURS Resulted Laboratory Tests Test 11/09/16 22:45 11/10/16 06:00 Urine Color Pale yellow Urine Appearance Clear Urine pH 7 (4.5-8.0) Urine Specific [place] 1.005 (1.005-1.035) Urine Protein 1+ (NEGATIVE) H Urine Glucose (UA) 4+ (NEGATIVE) H Urine Ketones Negative (NEGATIVE) Urine Occult Blood Negative (NEGATIVE) Urine Nitrite Negative (NEGATIVE) Urine Bilirubin Negative (NEGATIVE) Urine Urobilinogen Normal MG/DL (0.0-1.0) Urine Leukocyte Esterase 2+ (NEGATIVE) H Urine RBC 0 /HPF (0 - 2) Urine WBC 5-10 /HPF (0 - 2) H Urine Squamous Epithelial Cells Moderate /LPF (NONE/OCC) H Urine Bacteria Few /HPF (NONE) White Blood Count 16.3 K/UL (4.8-10.8) H Red Blood Count 3.16 M/UL (4.20-5.40) L Hemoglobin 9.4 G/DL (12.0-16.0) L Hematocrit 28.5 % (37.0-47.0) L Mean Corpuscular Volume 90 FL (80-99) Mean Corpuscular Hemoglobin 29.9 PG (27.0-31.0) Mean Corpuscular Hemoglobin Concent 33.1 G/DL (32.0-36.0) Red Cell Distribution Width 14.7 % (11.6-14.8) Platelet Count 413 K/UL (150-450) Mean Platelet Volume 5.6 FL (6.5-10.1) L Neutrophils (%) (Auto) 68.2 % (45.0-75.0) Lymphocytes (%) (Auto) 21.5 % (20.0-45.0) Monocytes (%) (Auto) 9.3 % (1.0-10.0) Eosinophils (%) (Auto) 0.5 % (0.0-3.0) Basophils (%) (Auto) 0.5 % (0.0-2.0) Erythrocyte Sedimentation Rate 119 MM/HR (0-20) H Sodium Level 135 mEQ/L (135-145) Potassium Level 3.7 mEQ/L (3.4-4.9) Chloride Level 98 mEQ/L (98-107) Carbon Dioxide Level 25 mEQ/L (20-30) Anion Gap 12 (5-15) Blood Urea Nitrogen 8 mg/dL (7-23) Creatinine 0.6 mg/dL (0.5-0.9) Estimat Glomerular Filtration Rate > 60 mL/min (>60) Glucose Level 172 mg/dL (74-106) #H Calcium Level 9.6 mg/dL (8.6-10.2) Phosphorus Level 3.3 mg/dL (2.5-4.8) Magnesium Level 1.4 mg/dL (1.7-2.5) L Total Bilirubin 0.3 mg/dL (0.0-1.2) Aspartate Amino Transf (AST/SGOT) 11 U/L (5-40) Alanine Aminotransferase (ALT/SGPT) 10 U/L (3-33) Alkaline Phosphatase 88 U/L (35-104) C-Reactive Protein, Quantitative 23.5 mg/dL (< 0.5) H Total Protein 6.7 g/dL (6.6-8.7) Albumin 3.3 g/dL (3.5-5.2) L Globulin 3.4 g/dL Albumin/Globulin Ratio 0.9 (1.0-2.7) L Current Medications Medications (Trade) Dose Ordered Sig/Mike Route PRN Reason Start Time Stop Time Status Last Admin Dose Admin Acetaminophen (Tylenol) 650 mg Q4H PRN ORAL Mild Pain/Temp > 100.5 11/09/16 06:45 12/09/16 06:44 11/10/16 14:11 Al Hydroxide/Mg Hydroxide (Mylanta II) 30 ml Q6H PRN ORAL dyspepsia 11/08/16 22:15 12/08/16 22:14 Aztreonam 1 gm/ Sodium Chloride 50 ml @ 100 mls/hr Q8H IVPB 11/09/16 00:00 11/16/16 00:00 11/10/16 16:04 Chlorhexidine Gluconate (Kyleigh-Hex 2%) 1 applic DAILY TOPIC 11/09/16 21:00 12/09/16 20:59 Dextrose (Dextrose 50%) STAT PRN IV Hypoglycemia 11/08/16 22:15 12/08/16 22:14 Heparin Sodium (Porcine) (Heparin 5000 units/ml) 5,000 units EVERY 12 HOURS SUBQ 11/09/16 09:00 12/09/16 08:59 11/10/16 20:43 Insulin Aspart (NovoLOG) BEFORE MEALS AND HS SUBQ 11/09/16 06:30 12/09/16 06:29 11/10/16 20:44 Lorazepam (Ativan 2mg/ml 1ml) 0.5 mg Q4H PRN IV For Anxiety 11/08/16 22:15 11/15/16 22:14 Mycophenolate Mofetil (Cellcept) 500 mg TWICE A DAY ORAL 11/10/16 18:00 12/10/16 17:59 11/10/16 18:07 Ondansetron HCl (Zofran) 4 mg Q6H PRN IVP Nausea & Vomiting 11/08/16 22:15 12/08/16 22:14 Polyethylene Glycol (Miralax) 17 gm HSPRN PRN ORAL Constipation 11/08/16 22:15 12/08/16 22:14 Tacrolimus (Prograf) 1 mg EVERY 12 HOURS ORAL 11/10/16 21:00 12/10/16 20:59 11/10/16 20:39 Zolpidem Tartrate (Ambien) 5 mg HSPRN PRN ORAL Insomnia 11/08/16 22:15 11/15/16 22:14 DEANA LUTHER M.D. Nov 10, 2016 21:08
[2016-11-11] VITALS: BP 115/75
[2016-11-11] MEDS: Aztreonam Inj 1 GM in NS 50 ML IVPB SCH ×2 (01:17→10:05)
[2016-11-11 04:00] VITALS: BP 115/76
[2016-11-11] MEDS: NovoLOG Insulin Flexpen SUBQ SCH ×2 (06:17→12:31)
[2016-11-11 07:54] VITALS: BP 124/68
[2016-11-11 08:23] LABS: BASOPHILS % (AUTO) 0.7 % (0.0-2.0); EOSINOPHILS % (AUTO) 1.5 % (0.0-3.0); MEAN CORPUSCULAR HGB CONC 33.5 G/DL (32.0-36.0); MEAN CORPUSCULAR VOLUME 90 FL (80-99); MEAN PLATELET VOLUME 5.5 FL (6.5-10.1); MONOCYTES % (AUTO) 9.4 % (1.0-10.0); NEUTROPHILS % (AUTO) 60.5 % (45.0-75.0); PLATELET COUNT 457 K/UL (150-450); RED BLOOD COUNT 3.11 M/UL (4.20-5.40); RED CELL DISTRIBUTION WIDTH 14.4 % (11.6-14.8); WHITE BLOOD COUNT 9.4 K/UL (4.8-10.8)
[2016-11-11 08:41] LABS: ALANINE AMINOTRANSFERASE 9 U/L (3-33); ALBUMIN/GLOBULIN RATIO 0.9 (1.0-2.7); ANION GAP 12 (5-15); ASPARTATE AMINO TRANSFERASE 9 U/L (5-40); CALCIUM 9.8 mg/dL (8.6-10.2); CARBON DIOXIDE 28 mEQ/L (20-30); CHLORIDE 96 mEQ/L (98-107); CREATININE 0.6 mg/dL (0.5-0.9); CRP QUANT 21.4 mg/dL (< 0.5); GLOMERULAR FILTRATION RATE > 60 mL/min (>60); HEMOLYSIS 2; MAGNESIUM 1.3 mg/dL (1.7-2.5); PHOSPHORUS 3.4 mg/dL (2.5-4.8); POTASSIUM 3.9 mEQ/L (3.4-4.9); SODIUM 136 mEQ/L (135-145)
[2016-11-11 09:33] LABS: ERYTHROCYTE SEDIMENTATION RATE 126 MM/HR (0-20)
[2016-11-11] MEDS: Dyna-Hex 2% Top Sol 8oz TOPIC SCH (10:05)
[2016-11-11] MEDS: Mycophenolate 250mg cap ORAL SCH (10:06)
[2016-11-11] MEDS: Heparin 5000 units/ml inj SUBQ SCH (10:07)
[2016-11-11 11:58] VITALS: BP 115/74
--- NOTE | 2016-11-11 12:22 | Pulmonology Progress Note ---
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 Subjective ROS Limited/Unobtainable: Yes Interval Events: feeling better Allergies: Coded Allergies: MORPHINE (Verified Allergy, Unknown, 11/08/16) PENICILLINS (Verified Allergy, Unknown, 11/08/16) Objective Last 24 Hour Vital Signs Date Time Temp Pulse Resp B/P (MAP) Pulse Ox O2 Delivery O2 Flow Rate FiO2 11/11/16 11:58 98.2 99 19 115/74 99 Room Air 11/11/16 07:54 97.7 80 19 124/68 95 Room Air 11/11/16 04:00 97.2 92 20 115/76 96 Room Air 11/11/16 04:00 87 11/11/16 00:00 95 11/11/16 00:00 98.5 80 20 115/75 100 Room Air 11/10/16 20:00 96 11/10/16 20:00 98.4 102 22 116/76 99 Room Air 11/10/16 16:00 100.0 102 18 106/73 99 Room Air 11/10/16 16:00 123 11/10/16 15:10 100.0 General Appearance: WD/WN HEENT: normocephalic, atraumatic Respiratory/Chest: chest wall non-tender, lungs clear Breasts: no masses Cardiovascular: normal peripheral pulses, normal rate Abdomen: normal bowel sounds, soft, non tender, no scars Genitourinary: normal external genitalia Extremities: no cyanosis Skin: no rash Neurologic/Psychiatric: sugar controller II-XII grossly normal, no motor/sensory deficits Microbiology Date/Time Source Procedure Growth Status 11/08/16 22:00 Blood Blood Culture - Preliminary NO GROWTH AFTER 48 HOURS Resulted 11/08/16 21:45 Blood Blood Culture - Preliminary NO GROWTH AFTER 48 HOURS Resulted 11/09/16 22:45 Urine,Clean Catch Urine Culture - Preliminary NO GROWTH Resulted Laboratory Tests 11/11/16 08:00: White Blood Count 9.4, Red Blood Count 3.11L, Hemoglobin 9.3L, Hematocrit 27.9L , Mean Corpuscular Volume 90, Mean Corpuscular Hemoglobin 30.0, Mean Corpuscular Hemoglobin Concent 33.5, Red Cell Distribution Width 14.4, Platelet Count 457H, Mean Platelet Volume 5.5L, Neutrophils (%) (Auto) 60.5, Lymphocytes (%) (Auto) 28.0, Monocytes (%) (Auto) 9.4, Eosinophils (%) (Auto) 1.5, Basophils (%) (Auto) 0.7, Erythrocyte Sedimentation Rate 126H, Sodium Level 136 , Potassium Level 3.9, Chloride Level 96L, Carbon Dioxide Level 28, Anion Gap 12 , Blood Urea Nitrogen 6L, Creatinine 0.6, Estimat Glomerular Filtration Rate > 60, Glucose Level 188H, Calcium Level 9.8, Phosphorus Level 3.4, Magnesium Level 1.3L, Total Bilirubin < 0.2, Aspartate Amino Transf (AST/SGOT) 9, Alanine Aminotransferase (ALT/SGPT) 9, Alkaline Phosphatase 93, C-Reactive Protein, Quantitative 21.4H, Total Protein 7.0, Albumin 3.4L, Globulin 3.6, Albumin/ Globulin Ratio 0.9L Current Medications Medications (Trade) Dose Ordered Sig/Mike Route PRN Reason Start Time Stop Time Status Last Admin Dose Admin Acetaminophen (Tylenol) 650 mg Q4H PRN ORAL Mild Pain/Temp > 100.5 11/09/16 06:45 12/09/16 06:44 11/10/16 14:11 Al Hydroxide/Mg Hydroxide (Mylanta II) 30 ml Q6H PRN ORAL dyspepsia 11/08/16 22:15 12/08/16 22:14 Aztreonam 1 gm/ Sodium Chloride 50 ml @ 100 mls/hr Q8H IVPB 11/09/16 00:00 11/16/16 00:00 11/11/16 10:05 Chlorhexidine Gluconate (Kyleigh-Hex 2%) 1 applic DAILY TOPIC 11/09/16 21:00 12/09/16 20:59 11/11/16 10:05 Dextrose (Dextrose 50%) STAT PRN IV Hypoglycemia 11/08/16 22:15 12/08/16 22:14 Heparin Sodium (Porcine) (Heparin 5000 units/ml) 5,000 units EVERY 12 HOURS SUBQ 11/09/16 09:00 12/09/16 08:59 11/11/16 10:07 Insulin Aspart (NovoLOG) BEFORE MEALS AND HS SUBQ 11/09/16 06:30 12/09/16 06:29 11/11/16 06:17 Lorazepam (Ativan 2mg/ml 1ml) 0.5 mg Q4H PRN IV For Anxiety 11/08/16 22:15 11/15/16 22:14 Mycophenolate Mofetil (Cellcept) 500 mg TWICE A DAY ORAL 11/10/16 18:00 12/10/16 17:59 11/11/16 10:06 Ondansetron HCl (Zofran) 4 mg Q6H PRN IVP Nausea & Vomiting 11/08/16 22:15 12/08/16 22:14 Polyethylene Glycol (Miralax) 17 gm HSPRN PRN ORAL Constipation 11/08/16 22:15 12/08/16 22:14 Tacrolimus (Prograf) 1 mg EVERY 12 HOURS ORAL 11/10/16 21:00 12/10/16 20:59 11/11/16 10:06 Zolpidem Tartrate (Ambien) 5 mg HSPRN PRN ORAL Insomnia 11/08/16 22:15 11/15/16 22:14 MICHAEL US Nov 11, 2016 12:22
[2016-11-11] MEDS ORDERED: CIPROFLOXACIN500 M2 ORAL ×2 (14:14→14:28)
--- NOTE | 2016-11-11 14:37 | Infectious Diseases Prog Note ---
Assessment/Plan Assessment/Plan Assessment: Fever improving Leukocytosis (>30) now normalized Probable L renal transplant pyelonephritis. pyelonephritis (left renal transplant). Ucx so far ngtd, but was delayed and obtained after >24 hrs abx. +ve Urgency and tenders over the left renal transplant Renal ultrasound.: Transplanted kidney in the left iliac fossa. prior R renal transplant is atrophic w/o abscess. b/l [place] kidneys atrophic but o/w unremarkable. blood cx from 11/08 remain ngtd at almost 72 hrs no prior cultures in our system decreased urinary urgency stable immunosuppression, on cellcept and tacrolimus CXR negative for pneumonia Diabetes Asthma History of renal transplant x2 (2008 and 2013) Anemia SCr 0.6 PLAN: continue the patient on Azactam d#3, stable for discharge from ID standpoint now that bacteremia ruled out on ciprofloxacin 500mg po q12hr to complete 14 days therapy prescription printed to her chart and included in d/c meds. Monitor CBC Monitor BMP Monitor Cx ( Bl, Ur ) covering for Dr. Retana. please contact me with any questions. Subjective Constitutional: Reports: chills HEENT: Reports: no symptoms Respiratory: Reports: dry cough Cardiovascular: Reports: no symptoms Gastrointestinal/Abdominal: Reports: no symptoms Genitourinary: Reports: frequency Skin: Reports: no symptoms Hematologic: Reports: no symptoms Musculoskeletal: Reports: no symptoms Allergies: Coded Allergies: MORPHINE (Verified Allergy, Unknown, 11/08/16) PENICILLINS (Verified Allergy, Unknown, 11/08/16) Subjective reports feeling better, decreasing fevers. Objective Vital Signs Last 24 Hour Vital Signs Date Time Temp Pulse Resp B/P (MAP) Pulse Ox O2 Delivery O2 Flow Rate FiO2 11/11/16 12:00 107 11/11/16 11:58 98.2 99 19 115/74 99 Room Air 11/11/16 08:00 90 11/11/16 07:54 97.7 80 19 124/68 95 Room Air 11/11/16 04:00 97.2 92 20 115/76 96 Room Air 11/11/16 04:00 87 11/11/16 00:00 95 11/11/16 00:00 98.5 80 20 115/75 100 Room Air 11/10/16 20:00 96 11/10/16 20:00 98.4 102 22 116/76 99 Room Air 11/10/16 16:00 100.0 102 18 106/73 99 Room Air 11/10/16 16:00 123 11/10/16 15:10 100.0 Height (Feet): 4 Height (Inches): 11.00 Weight (Pounds): 108 Objective HEENT: anicteric, no oral lesions, no pharyngeal injection. Respiratory/Chest: no respiratory distress. + expiratory wheezes to L lower lung aj posteriorly with mild L flank pain. no crackles. Cardiovascular: regularly irregular Abdomen: no organomegaly. mild LLQ pain, decreased from prior. no R sided pain gu: no de oliveira in place. ext: PIV c/d/i skin: no rash Microbiology Date/Time Source Procedure Growth Status 11/08/16 22:00 Blood Blood Culture - Preliminary NO GROWTH AFTER 48 HOURS Resulted 11/08/16 21:45 Blood Blood Culture - Preliminary NO GROWTH AFTER 48 HOURS Resulted 11/09/16 22:45 Urine,Clean Catch Urine Culture - Preliminary NO GROWTH Resulted Laboratory Tests Test 11/11/16 08:00 White Blood Count 9.4 K/UL (4.8-10.8) Red Blood Count 3.11 M/UL (4.20-5.40) L Hemoglobin 9.3 G/DL (12.0-16.0) L Hematocrit 27.9 % (37.0-47.0) L Mean Corpuscular Volume 90 FL (80-99) Mean Corpuscular Hemoglobin 30.0 PG (27.0-31.0) Mean Corpuscular Hemoglobin Concent 33.5 G/DL (32.0-36.0) Red Cell Distribution Width 14.4 % (11.6-14.8) Platelet Count 457 K/UL (150-450) H Mean Platelet Volume 5.5 FL (6.5-10.1) L Neutrophils (%) (Auto) 60.5 % (45.0-75.0) Lymphocytes (%) (Auto) 28.0 % (20.0-45.0) Monocytes (%) (Auto) 9.4 % (1.0-10.0) Eosinophils (%) (Auto) 1.5 % (0.0-3.0) Basophils (%) (Auto) 0.7 % (0.0-2.0) Erythrocyte Sedimentation Rate 126 MM/HR (0-20) H Sodium Level 136 mEQ/L (135-145) Potassium Level 3.9 mEQ/L (3.4-4.9) Chloride Level 96 mEQ/L (98-107) L Carbon Dioxide Level 28 mEQ/L (20-30) Anion Gap 12 (5-15) Blood Urea Nitrogen 6 mg/dL (7-23) L Creatinine 0.6 mg/dL (0.5-0.9) Estimat Glomerular Filtration Rate > 60 mL/min (>60) Glucose Level 188 mg/dL (74-106) H Calcium Level 9.8 mg/dL (8.6-10.2) Phosphorus Level 3.4 mg/dL (2.5-4.8) Magnesium Level 1.3 mg/dL (1.7-2.5) L Total Bilirubin < 0.2 mg/dL (0.0-1.2) Aspartate Amino Transf (AST/SGOT) 9 U/L (5-40) Alanine Aminotransferase (ALT/SGPT) 9 U/L (3-33) Alkaline Phosphatase 93 U/L (35-104) C-Reactive Protein, Quantitative 21.4 mg/dL (< 0.5) H Total Protein 7.0 g/dL (6.6-8.7) Albumin 3.4 g/dL (3.5-5.2) L Globulin 3.6 g/dL Albumin/Globulin Ratio 0.9 (1.0-2.7) L Radiology: Patient : ROXANA DELGADO Referring Physician: MICHAEL US ID Number: [id number] Service Date: 11/10/16 : 1990 Report Date: 11/10/16 Gender: F Accession No.: [id number] Location: Procedure: US ABD Complete Indication:Abdominal pain Technique: Grayscale and duplex Doppler imaging of the abdomen performed. Comparison: None Findings: The liver, demonstrated part of the pancreas, gallbladder, aorta and IVC, spleen appear unremarkable. CBD is 4 mm. There is no biliary ductal dilatation identified. The [place] kidneys are not seen well. Doppler evaluation of the main portal vein shows patency. There is no ascites. Patient has history of end-stage renal disease and is status post 2 transplant kidneys. There is an old transplanted kidney in the right iliac fossa, which appear small and echogenic. There is a left transplanted kidney as well as iliac fossa which appears normal in contour size and echogenicity with no hydronephrosis. Doppler sampling of the left renal transplant kidney shows resistive indices that are within normal limits (approximately 0.6- 0.7) and waveforms showing good diastolic flow throughout the cardiac cycle. Urinary bladder is unremarkable. Impression: No acute findings demonstrated. Atrophy of the [place] kidneys. Transplanted kidney in the left iliac fossa. Normal Doppler waveforms and resistive indices. Old right transplanted kidney. Current Medications Medications (Trade) Dose Ordered Sig/Mike Route PRN Reason Start Time Stop Time Status Last Admin Dose Admin Acetaminophen (Tylenol) 650 mg Q4H PRN ORAL Mild Pain/Temp > 100.5 11/09/16 06:45 12/09/16 06:44 11/10/16 14:11 Al Hydroxide/Mg Hydroxide (Mylanta II) 30 ml Q6H PRN ORAL dyspepsia 11/08/16 22:15 12/08/16 22:14 Aztreonam 1 gm/ Sodium Chloride 50 ml @ 100 mls/hr Q8H IVPB 11/09/16 00:00 11/16/16 00:00 11/11/16 10:05 Chlorhexidine Gluconate (Kyleigh-Hex 2%) 1 applic DAILY TOPIC 11/09/16 21:00 12/09/16 20:59 11/11/16 10:05 Dextrose (Dextrose 50%) STAT PRN IV Hypoglycemia 11/08/16 22:15 12/08/16 22:14 Heparin Sodium (Porcine) (Heparin 5000 units/ml) 5,000 units EVERY 12 HOURS SUBQ 11/09/16 09:00 12/09/16 08:59 11/11/16 10:07 Insulin Aspart (NovoLOG) BEFORE MEALS AND HS SUBQ 11/09/16 06:30 12/09/16 06:29 11/11/16 12:31 Lorazepam (Ativan 2mg/ml 1ml) 0.5 mg Q4H PRN IV For Anxiety 11/08/16 22:15 11/15/16 22:14 Mycophenolate Mofetil (Cellcept) 500 mg TWICE A DAY ORAL 11/10/16 18:00 12/10/16 17:59 11/11/16 10:06 Ondansetron HCl (Zofran) 4 mg Q6H PRN IVP Nausea & Vomiting 11/08/16 22:15 12/08/16 22:14 Polyethylene Glycol (Miralax) 17 gm HSPRN PRN ORAL Constipation 11/08/16 22:15 12/08/16 22:14 Tacrolimus (Prograf) 1 mg EVERY 12 HOURS ORAL 11/10/16 21:00 12/10/16 20:59 11/11/16 10:06 Zolpidem Tartrate (Ambien) 5 mg HSPRN PRN ORAL Insomnia 11/08/16 22:15 11/15/16 22:14 Rajesh Anguiano M.D. Nov 11, 2016 14:37
[2016-11-11 16:12] VITALS: BP 125/84
--- NOTE | 2016-11-12 14:57 | Discharge Summary ---
Discharge Summary Hospital Course Date of Admission Nov 08, 2016 at 21:16 Date of Discharge Nov 11, 2016 at 18:37 Admitting Diagnosis hypoglycemia HPI Corin Polanco is a 26 year old female who was admitted on Nov 08, 2016 at 21:16 for Hypoglycemia Hospital Course [id number] Discharge Discharge Disposition Patient was discharged to Home (01) Discharge Diagnoses: Maame Hodge NP Nov 12, 2016 14:57
--- NOTE | 2016-11-16 10:16 | Discharge Summary 2 SIG ---
DATE OF ADMISSION: 11/08/2016 DATE OF DISCHARGE: 11/11/2016 INSTRUMENT REPAIR SUPERVISOR: Nikhil Retana M.D. BRIEF HOSPITAL COURSE: The patient is a 26-year-old female, who is homeless and has history of diabetes, who was brought in by paramedics for complaints of altered level of consciousness and hypoglycemia. On evaluation at ED, the patient was lethargic. Glucose was in the 40s. She was given IV dextrose, however, blood sugar continued to drop. Additional dextrose was given and was started on D10 drip. Blood work showed leukocytosis. WBC was elevated to 30s. Chest x-ray showed no obvious disease. She was pancultured and was admitted to telemetry for sepsis, altered mental status, and diabetes with hypoglycemia. She was started on IV fluids and was given Azactam. WBC improved. Cultures were negative. Tachycardia resolved. Echocardiogram showed EF of 60%. Abdominal, pelvic, and transvaginal ultrasound was negative and showed transplanted kidney; however, no acute findings. Azactam was discontinued and the patient was eventually discharged home. Continue p.o. antibiotics. She refused placement. She was given bus tokens and home medications prior to discharge. FINAL DIAGNOSES: 1. Sepsis. 2. Acute metabolic encephalopathy secondary to hypoglycemia. 3. Diabetes mellitus. 4. 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 5. Stable immunosuppression, on CellCept and tacrolimus. 6. Asthma. 7. Anemia. DISPOSITION: The patient was discharged home. FOLLOWUP: The patient was advised to follow up with PMD in a week. MEDICATIONS: The patient's medications were filled prior to being discharged. ACTIVITY: As tolerated. Naima Avila M.D. I have been assigned to dictate discharge summary on this account and I was not involved in the patient's management. Maame Hodge N.P. DR: Jen JOB#: [id number] CC: ANGELO
== END 2016-11-11 18:37 | disposition home or self-care (01) | DRG 720 ==
LOC: EDBD 20:25 → EDBEDREQ 20:46 → EMR 21:15 → 2E 21:16 → EDBEDREQ 22:01 → 2E 23:24
DX: A41.9 Sepsis, unspecified organism (principal); G93.41 Metabolic encephalopathy; E11.649 Type 2 diabetes mellitus with hypoglycemia without coma; Z94.0 Kidney transplant status; E87.6 Hypokalemia; Z59.0 Homelessness; D72.829 Elevated white blood cell count, unspecified; N12 Tubulo-interstitial nephritis, not specified as acute or chronic; R00.0 Tachycardia, unspecified; D64.9 Anemia, unspecified; Z79.84 Long term (current) use of oral hypoglycemic drugs; Z79.4 Long term (current) use of insulin
CPT/HCPCS: 36415; 71010; 76700; 76830; 76856; 80053; 80061; 81001; 82962; 83735; 84100; 85007; 85025; 85651; 86140; 87040; 87086; 93005; 93306; 99285; J1815; S0077